=== PATIENT | female | born 1980 | race Caucasian/White ===

== ENCOUNTER → 2025-03-10 | Outpatient (CLI) | payer OTHER, SELFPAY ==
--- NOTE | 2025-03-10 14:47 | RAD_ITS ---
PROCEDURE: PELVIS 1 OR 2 VIEWS 03/10/2025 REASON FOR EXAM: INFLAMMATORY POLYARTHROPATHY TECHNIQUE: 1 view(s) of the pelvis. FINDINGS: Symmetric appearing SI joints and pubic symphysis appear within limits. No fracture or dislocation. The joint spaces appear within limits. Visualized lower lumbar spine appears unremarkable. RAD/Pelvis 1 or 2 Views IMPRESSION: Study appears within limits. Reading Location: [id number]
[2025-03-10 17:44] LABS: Absolute Lymphocyte Count 3.01 X10^3/uL (0.83-4.51); Absolute Neutrophil Count 8.4 X10^3/uL (2.0-7.7); Basophil# 0.07 X10^3/uL; Basophil% 0.6 % (0-1); Eosinophil# 0.11 X10^3/uL; Eosinophils% 0.9 % (0-5); Hematocrit 39.8 % (37-47); Hemoglobin 13.2 g/dL (12.0-15.0); Lymphocyte # 3.01 X10^3/ul (0.83-4.51); Lymphocyte % 24.1 % (19-41); Mean Corp Hgb Conc 33.2 g/dL (32-36); Mean Corpuscular Hgb 28.4 pg (27.0-32.0); Mean Corpuscular Volume 85.6 fL (81-99); Mean Platelet Vol. 9.8 fl (6.2-12.0); Monocyte% 6.4 % (0-10); NRBC Flagged by Analyzer 0 % (0-5); Neutrophil # 8.44 X10^3/uL (2.7-7.7); Neutrophil % 67.6 % (47-70); Platelet Count 324 K/mm3 (150-450); RBC Distribution Width CV 12.7 % (11.6-14.6); RBC Distribution Width SD 39.1 fl (35.1-43.9); Red Blood Count 4.65 M/mm3 (4.2-5.4); White Blood Count 12.5 K/mm3 (4.4-11.0)
[2025-03-10 20:03] LABS: Hepatitis B Surface Antibody Nonreactive
[2025-03-10 20:16] LABS: ALB/GLOB Ratio 1.7 RATIO (0.9-2.4); AST(SGOT) 18 U/L (<=31); Alanine Aminotransfer ALT/SGPT 10 U/L (<=34); Albumin, Serum 4.4 g/dL (3.5-5.0); Alkaline Phosphatase 82 U/L (35-104); Anion Gap 12 (5-15); BUN 8 mg/dL (4-19); BUN/Creat Ratio 14.2 RATIO (10-20); Calcium,Total 9.3 mg/dL (7.6-11.0); Carbon Dioxide 19.7 mmol/L (21.0-32.0); Chloride 104 mmol/L (98-108); Creatinine, Serum 0.56 mg/dL (0.70-1.20); EST Glomerular Filtration Rate 114 (>60); Globulin 2.7 g/dL (2.2-4.2); Glucose 88 mg/dL (70-99); Hepatitis B Surface Antigen Nonreactive (Nonreactive); Hepatitis C Antibody Nonreactive (Nonreactive); Potassium 4.1 mmol/L (3.3-5.1); Protein, Total 7.1 g/dL (5.9-8.4); Sodium Level 136 mmol/L (133-145); Total Bilirubin 0.28 mg/dL (0.00-1.30)
== END | disposition home or self-care (01) ==
LOC: MTLAB 14:45
PROVIDERS: PCP Family Medicine; Referring Provider Internal Medicine Rheumatology; Visit Provider Internal Medicine Rheumatology
DX: M06.4 Inflammatory polyarthropathy (principal); R51.9 Headache, unspecified; R10.9 Unspecified abdominal pain
CPT/HCPCS: 36415; 72170; 80053; 85025; 86706; 86803; 87340